=== PATIENT | male | born 1970 | race Caucasian/White ===

== ENCOUNTER 2020-09-24 13:55 | Emergency (ER) | payer BC, SELFPAY ==
[2020-09-24] VITALS (11 sets, daily range): BP systolic 135–176; BP diastolic 92–157; PULSE 86–114; RESP 14–22; TEMP 36.4; O2SAT 92–99
--- NOTE | ~2020-09-24 | XR_ITS ---
EXAMINATION: XR chest 1V portable EXAM DATE: 09/24/2020 14:49 INDICATION: Seizure activity today. TECHNIQUE: Portable AP frontal chest x-ray was obtained. There is no prior study for comparison. FINDINGS: The lungs are clear. There are no pleural effusions. The cardiomediastinal silhouette is within normal limits. There is no pneumothorax suspected. Advanced left glenohumeral joint osteoart hritis. IMPRESSION: No acute cardiopulmonary findings. Reviewed, dictated and finalized at location A. 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
--- NOTE | ~2020-09-24 | CT_ITS ---
EXAMINATION: CT brain wo con EXAM DATE: 09/24/2020 15:04 INDICATION: Seizure, headache, new onset. TECHNIQUE: Spiral CT of the head was performed without contrast. Axial, coronal and sagittal images were reviewed. The dose-length product (DLP) for this examination was 681.00 mGy-cm. The exposure w as tailored according to patient size, and iterative reconstruction (ASIR) was used as additional dos e reduction technique. There is no prior study for comparison. FINDINGS: There is no acute intraparenchymal hemorrhage. No evidence of intraparenchymal brain mass lesion. No evidence of acute infarction. Please note that initial head CT has limited sensitivity f or small or acute infarctions. There is mild prominence of the sulci and ventricles related to cerebr al atrophy. There is intracranial carotid arteriosclerosis. There are no extra-axial collections. There is no mass effect or midline shift. The orbits are unremarkable. There may be small amount o f soft tissue swelling of the vertex. The visualized sinuses and mastoid air cells are well aerated. IMPRESSION: 1. No acute intracranial findings. 2. Possible small amount of posterior vertex scalp swelling. Reviewed, dictated and finalized at location A. NEL TURNER
--- NOTE | 2020-09-24 14:08 | ECG_ITS ---
Measurements Intervals Reva Rate: 89 P: 12 PA: 131 QRS: -28 QRSD: 105 T: 11 QT: 368 QTc: 449 Interpretive Statements SINUS RHYTHM DELAYED PRECORDIAL R/S TRANSITION BORDERLINE T WAVE ABNORMALITY- INF/HIGH LAT LEADS BASELINE ARTIFACT- I, III, AVR, AVL, AVF, V1 BORDERLINE ECG Electronically Signed On 09-24-2020 15:35:16 PEWTER FABRICATOR by Domo Valenzuela D.O.
[2020-09-24] MEDS: SODIUM CHLORIDE 0.9% IV 1,000 ML 999 ML IV CONT (14:24)
[2020-09-24 14:51] LABS: Basophils Percent Auto 0.3 % (0.2-1.2); Eosinophils Percent Auto 0.2 % (0-4.4); Hematocrit 47.7 % (42.0-52.0); Hemoglobin 16.3 g/dL (14.0-18.0); Immature Granulocyte Absolute 0.05 K/mm3 (0.00-0.031); Immature Granulocyte Percent A 0.5 % (0-0.5); Lymphocytes Absolute Auto 1.04 K/mm3 (0.9-3.2); Lymphocytes Percent Auto 9.4 % (18.3-44.2); Mean Corpuscular HGB Conc 34.2 g/dl (32-36); Mean Corpuscular Hemoglobin 30.1 pg (26-34); Mean Corpuscular Volume 88.2 fl (80-100); Mean Platelet Volume 9.9 fl (7.4-10.4); Monocytes Absolute Auto 0.6 K/mm3 (0.1-0.6); Monocytes Percent Auto 5.3 % (2.6-8.5); Neutrophils Absolute Auto 9.3 K/mm3 (1.3-6.7); Neutrophils Percent Auto 84.3 % (45.5-73.1); Platelet Count Result 210 k/mm3 (150-375); Red Blood Count 5.41 M/mm3 (4.6-6.20); Red Cell Distribution Width 12.5 % (11.5-14.5)
[2020-09-24 14:57] LABS: Alveolar/Arterial O2 Gradient 38.5 mmHg; Base Excess ABG -3.7 mEq/l (+/-2.0); Carboxyhemoglobin 0.8 % THb (0-2.0); Fractional Inspired Oxygen 21 %; Methemoglobin ABG 0.4 %THb (0-1.5); Oxygen Content ABG 20.8 %vol (16.0-22.0); Oxygen Saturation ABG 94.6 % (95.0-100.0); Oxyhemoglobin 92.5 % THb (90.0-100.0); PO2 ABG 71.7 mmHg (80.0-100.0); PO2 FiO2 Ratio Arterial Blood 3.41 %; Reduced Hemoglobin 6.3 %THb (0-5.0); pH ABG 7.401 (7.350-7.450)
[2020-09-24 14:58] LABS: Device ROOM AIR; Site Drawn RIGHT BRACHIAL
[2020-09-24 14:59] LABS: Add Urine Microscopic? YES; Appearance Urine Clear (Clear); Bilirubin Urine Negative (Negative); Blood Urine Negative (Negative); Color Urine Yellow (Yellow); Glucose Urine UA Negative (Negative); Ketones Urine Trace mg/dL (Negative); Leukocyte Esterase Ur Negative LEU/UL (Negative); Nitrate Urine Negative (Negative); Protein Urine 2+ mg/dL (Negative); RBC Urine 0-2 /hpf (0-2); Specific Grav Ur 1.013 (1.001-1.035); Squamous Epithelial Cell Urine Rare /hpf (Few); Urobilinogen Urine Negative mg/dL (<2.0); WBC Urine 0-3 /hpf
[2020-09-24 15:02] LABS: Lactic Acid Reflex 2.8 mmol/L (0.7-2.1); Prothrombin Time 13.3 Seconds (11.1-14.7)
[2020-09-24 15:03] LABS: Ethanol < 10 mg/dL (<10); Partial Thromboplastin Time 24.9 SECONDS (22.3-36.8)
[2020-09-24 15:06] LABS: Alanine Aminotransferase 20 U/L (4-50); Albumin Level 4.6 g/dL (3.5-5.1); Alkaline Phosphatase 61 U/L (38-126); Anion Gap 9 mmol/L (8-16); Aspartate Amino Transferase 24 U/L (17-59); Bilirubin,Total 0.7 mg/dL (0.2-1.3); Blood Urea Nitrogen 13 mg/dL (9-20); CRP < 0.5 mg/dL (<1.0); Calcium 9.2 mg/dL (8.4-10.2); Carbon Dioxide 25 mmol/L (22-30); Chloride 103 mmol/L (98-107); Estimated CRCL calculation 93 ml/min; Estimated Glomerular Filt Rate > 60; Glucose 124 mg/dL (75-110); Lipase 61 U/L (23-300); Potassium 4.1 mmol/L (3.4-5.0); Sodium 137 mmol/L (137-145)
--- NOTE | 2020-09-24 15:14 | ED.GENADULT ---
HPI - General Adult General Chief complaint: Seizure Stated complaint: seizure Time Seen by Provider: 09/24/20 14:07 Source: patient Mode of arrival: ambulatory Limitations: no limitations History of Present Illness HPI narrative: Patient is a 50-year-old male who presents to emergency department for evaluation of seizure activity at work today was witnessed to have tonic-clonic seizure-like activity was confused after which for short period of time and on arrival to emergency department is having returned to normal mentation patient denies any recent illness or other complaints does not remember the seizure activity patient did bite his tongue. Patient denies any history of seizures. Patient notes the only recent changes he has had his a fasting diet that he has been doing for the last 2 weeks. Patient on arrival in the room in no distress only notes mild pain to the tongue where he has bitten himself as well as mild posterior headache where he has a small hematoma Related Data Allergies Allergy/AdvReac Type Severity Reaction Status Date / Time No Known Allergies Allergy Verified 09/24/20 14:06 Review of Systems Review of Systems: All systems reviewed & are unremarkable except as noted in HPI and below PMFSH Social History Social History (Updated 09/24/20 @ 15:15 by Tavo Gonzalez PA-C) Smoking status: Never smoker Exam Narrative: Exam Narrative: GENERAL: Well-appearing, well-nourished, and in no acute distress. HEAD: Normocephalic, small posterior scalp hematoma EYES: PERRLA and EOMI. ENT: Nares clear, no rhinorrhea or epistaxis. Mucous membranes moist. CHEST: Clear to auscultation. No respiratory distress. No wheezes rales or rhonchi HEART: Regular rate and rhythm. No murmur heard. Normal peripheral pulses. ABDOMEN: Soft, nontender, nondistended EXTREMITIES: Normal range of motion. No edema. SKIN: Warm, dry, no rash. NEURO: No focal deficits. Alert and oriented x3. Cranial nerves II through XII grossly intact. Normal speech PSYCH: Normal mood and affect. Course Course Emergency Course: Patient in the room at this time aware of case findings treatment plan diagnosis hemodynamically stable ABCs and vital signs intact and stable patient without high risk changes in his evaluation will follow with neurology is aware of recommendations will be started on Keppra loaded with Keppra in the emergency department. Patient also given driving restrictions. Consultations Consultation #1: Discussed case with neurologist Dr. Corrigan who would like the patient to be loaded with Keppra and started on Keppra 500 mg twice daily until he is seen in the clinic for outpatient follow-up also to be provided with driving restrictions Date: 09/24/20 Time: 16:11 Vital Signs Vital signs: Vital Signs Pulse Rate 100 09/24/20 13:58 Respiratory Rate 18 09/24/20 13:58 Pulse Oximetry 97 09/24/20 13:58 Temperature 97.5 F L 09/24/20 14:02 Pulse Rate 95 09/24/20 16:01 Respiratory Rate 20 09/24/20 16:01 Blood Pressure 160/115 H 09/24/20 16:00 Pulse Oximetry 99 09/24/20 15:46 Medical Decision Making [facility] Narrative Medical decision making narrative: Patient in the room no distress aware of case findings treatment plan and diagnosis felt appropriate for outpatient reevaluation Vital Signs Vital Signs: Vital Signs Pulse Rate 100 09/24/20 13:58 Respiratory Rate 18 09/24/20 13:58 Pulse Oximetry 97 09/24/20 13:58 Temperature 97.5 F L 09/24/20 14:02 Pulse Rate 95 09/24/20 16:01 Respiratory Rate 20 09/24/20 16:01 Blood Pressure 160/115 H 09/24/20 16:00 Pulse Oximetry 99 09/24/20 15:46 Lab Data Result diagrams: 09/24/20 14:38 09/24/20 14:38 Labs: Lab Results 09/24/20 09/24/20 09/24/20 Range/Units 14:37 14:37 14:38 WBC 11.0 H (4.5-10.0) K/mm3 RBC 5.41 (4.6-6.20) M/mm3 Hgb 16.3 (14.0-18.0) g/dL Hct 47.7 (42.0-52.0) % MCV 8
[2020-09-24 15:19] LABS: Benzodiazepines Screen Urine Negative (Negative)
[2020-09-24 15:27] LABS: Amphetamine Screen Urine Negative (Negative); Cannabinoid Screen Urine Negative (Negative); Cocaine Screen Urine Negative (Negative); Methadone Screen Urine Negative (Negative); Opiate Screen Urine Negative (Negative); Phencyclidine Screen Urine Negative (Negative)
[2020-09-24 15:32] LABS: Barbiturate Screen Urine Negative (Negative)
[2020-09-24] MEDS: levETIRAcetam 1000MG/NACL100ML 1,000 MG/100 ML BAG 400 MG IVPB (15:43)
[2020-09-24 17:47] LABS: Reflex Lactic Acid Yes or No Add Lactic
== END 2020-09-24 16:38 | disposition home or self-care (01) ==
PROVIDERS: Emergency Medicine Emergency Medical Services; Emergency Provider Emergency Medicine
DX: R56.9 Unspecified convulsions (principal); R94.31 Abnormal electrocardiogram [ECG] [EKG]
CPT/HCPCS: 36415; 36600; 70450; 71045; 80053; 80307; 81001; 82375; 82805; 83050; 83605; 83690; 85025; 85610; 85730; 86140; 87040; 93005; 96361; 96365; 99284; J1953; J7030

== ENCOUNTER 2020-10-07 12:35 | Outpatient (CLI) | payer BC, SELFPAY ==
--- NOTE | 2020-10-08 09:10 | NEURO_ITS ---
This report was moved to the correct visit, [id number] on 10/24/20. Original report was signed by Volodymyr Corrigan MD on 10/08/20 [id number]. Neurology EEG Report EEG DESCRIPTION Basic resting occipital frequency consists of large amount of fairly well- organized low voltage 8 to 10 hertz per second alpha admixed with low-voltage 15 to 18 hertz per second beta .During drowsiness low-voltage beta activity seen diffusely admixed with waxing and waning posterior alpha rhythm .Intermittent low to medium voltage 5 to 7 hertz per second theta activity seen anteriorly. Bilateral symmetrical sleep activity seen during sleep. Regular EKG artifact is also noted throughout the tracing.Hyperventilation not done. Photic stimulation produced normal drive. non paroxysmal. nonfocal .nonlateralizing. IMPRESSION abnormal record due to the presence of bihemispheric intermittent theta and delta activity ,clinical correlation recommended, abnormalities could be suggestive of underlying organic or metabolic encephalopathy or post ictal slowing. This dictation may have been done utilizing a voice recognition system. Attempts have been made to correct errors. However, there may be uncorrected grammatical, spelling, and recognition errors present. Report Initialized date/time: Volodymyr Corrigan MD 10/08/2010 Electronically signed by: Volodymyr Corrigan MD 10/08/20 [id number] [facility]
--- NOTE | 2020-10-08 10:53 | NEURO_ITS ---
This report was moved to the correct visit, [id number] on 10/24/20. Original report was signed by Volodymyr Corrigan MD on 10/08/201052. Neurology EEG Report General Information Date of Study: 10/07/20 TEST eeg DIAGNOSIS Seizures CONDITION OF RECORDING awake ,drowsy and sleep EEG NUMBER [id number] CLINICAL HISTORY patient reported he was at work in a meeting when he lost consciousness and bit his tongue. Witnesses say he was shaking while unconscious. No previous history or family history of seizures. EEG DESCRIPTION basic resting occipital frequency consists of large amount of fairly well- organized low voltage 9 to 11 hertz per second alpha admixed with low-voltage 15 to 18 hertz per second beta. . During drowsiness low-voltage beta activity seen diffusely admixed with waxing and waning alpha rhythm posteriorly. Intermittent regular EKG artifact is seen throughout most of the tracing.. Intermittent 2 to 3 hertz per second delta activity seen anteriorly Nonfocal. Nonlateralizing. IMPRESSION Abnormal record due to the intermittent theta and delta activity more so anteriorly clinical correlation recommended these abnormalities could be suggestive of underlying organic a metabolic encephalopathy or seizure focus This dictation may have been done utilizing a voice recognition system. Attempts have been made to correct errors. However, there may be uncorrected grammatical, spelling, and recognition errors present. Report Initialized date/time: Volodymyr Corrigan MD 10/08/201052 Electronically signed by: Volodymyr Corrigan MD 10/08/201052 [facility]
== END 2020-10-07 12:36 | disposition home or self-care (01) ==
PROVIDERS: Visit Provider Psychiatry & Neurology Neurology
DX: R56.9 Unspecified convulsions (principal)
CPT/HCPCS: 95816

== ENCOUNTER 2020-10-08 12:38 | Outpatient (CLI) | payer BC, SELFPAY ==
--- NOTE | ~2020-10-08 | CT_ITS ---
EXAMINATION: CTA brain carotid DATE: 10/08/2020 13:19 INDICATION: Cerebral aneurysm. TECHNIQUE: Computed tomographic angiography (CTA) of the head was performed with 100 mL Omnipaque-350 intravenous contrast. CTA of the neck was performed with intravenous contrast. Automated exposure co ntrol and iterative reconstruction technique were employed. The dose-length product was 1260.26 mGy-c m. Maximum intensity projection and volume rendered 3D-reconstructions were created by the [employer] on a separate workstation. COMPARISON: Head CT 09/24/2020 FINDINGS: HEAD CTA: There is no intracranial hemorrhage, acute infarction, or abnormal intracranial mass lesion . The ventricles are normal in size. There is a mucous retention cyst in the frontal sinus. The masto id air cells are normal. The orbits are normal. The vertebral arteries are codominant. There is no si gnificant stenosis of basilar artery or the posterior cerebral arteries. There is no significant sten osis of the intracranial internal carotid arteries or anterior or middle cerebral arteries. Anterior communicating artery is normal. The posterior communicating arteries are normal. NECK CTA: There are no pathologically enlarged lymph nodes. There is no significant stenosis of the v ertebral arteries. There is plaque in the proximal internal carotid arteries. There is 0% stenosis of the proximal right internal carotid artery relative to normal distal artery lumen diameter (NASCET c riteria). There is 0% stenosis of the proximal left internal carotid artery relative to normal distal artery lumen diameter. There is moderate cervical spondylosis. IMPRESSION: 1. No aneurysm. 2. 0% stenosis of the proximal internal carotid arteries relative to normal distal artery lumen diame ters (NASCET criteria). Reviewed, dictated and finalized at location A. IMPRESSION: 1. No aneurysm. 2. 0% stenosis of the proximal internal carotid arteries relative to normal dis mindy artery lumen diameters (NASCET criteria).
--- NOTE | 2020-10-08 09:08 | P.NEURO_ITS ---
Neurology EEG Report EEG DESCRIPTION Basic resting occipital frequency consists of large amount of fairly well- organized low voltage 8 to 10 hertz per second alpha admixed with low-voltage 15 to 18 hertz per second beta .During drowsiness low-voltage beta activity seen diffusely admixed with waxing and waning posterior alpha rhythm .Intermittent low to medium voltage 5 to 7 hertz per second theta activity seen anteriorly. Bilateral symmetrical sleep activity seen during sleep. Regular EKG artifact is also noted throughout the tracing.Hyperventilation not done. Photic stimulation produced normal drive. non paroxysmal. nonfocal .nonlateralizing. IMPRESSION abnormal record due to the presence of bihemispheric intermittent theta and delta activity ,clinical correlation recommended, abnormalities could be suggestive of underlying organic or metabolic encephalopathy or post ictal slowing.
--- NOTE | 2020-10-08 10:46 | P.NEURO_ITS ---
Neurology EEG Report General Information Date of Study: 10/07/20 TEST eeg DIAGNOSIS Seizures CONDITION OF RECORDING awake ,drowsy and sleep EEG NUMBER [id number] CLINICAL HISTORY patient reported he was at work in a meeting when he lost consciousness and bit his tongue. Witnesses say he was shaking while unconscious. No previous history or family history of seizures. EEG DESCRIPTION basic resting occipital frequency consists of large amount of fairly well- organized low voltage 9 to 11 hertz per second alpha admixed with low-voltage 15 to 18 hertz per second beta. . During drowsiness low-voltage beta activity seen diffusely admixed with waxing and waning alpha rhythm posteriorly. Intermittent regular EKG artifact is seen throughout most of the tracing.. Intermittent 2 to 3 hertz per second delta activity seen anteriorly Nonfocal. Nonlateralizing. IMPRESSION Abnormal record due to the intermittent theta and delta activity more so anteriorly clinical correlation recommended these abnormalities could be suggestive of underlying organic a metabolic encephalopathy or seizure focus
--- NOTE | 2020-10-08 13:01 | WPDNEUROLOGY ---
Neurology EEG Report General Information Date of Study: 10/07/20 TEST eeg DIAGNOSIS sizures CONDITION OF RECORDING awake drowsy and sleep EEG NUMBER [id number] CLINICAL HISTORY Patient reported that he was at work in a meeting when he lost consciousness and bit his tongue. Witness reported he was shaking while unconscious. No previous history or family history of seizure was available patient was in our 44 of a 48 hours cleans EEG DESCRIPTION basic resting occipital frequency consists of large amount of well-organized low voltage 8 to 10 hertz per 2nd alpha admixed with low-voltage 15 to 18 hertz per 2nd beta activity. During drowsiness low-voltage beta activity seen diffusely admixed with waxing and waning posterior alpha rhythm. Intermittent EKG artifact is noted throughout the tracing. bihemispheric spike and slow wave dysrhythmic activity seen lasting anywhere from 3 to 5 minutes with temporal dominance. these abnormalities are suggestive of underlying seizure disorder with temporal focus . IMPRESSION abnormal record due to the presence of bihemispheric theta and delta activity with the possibility of the sharp activity origin 18 from the left temporal focal further evaluation is recommended
== END 2020-10-08 12:39 | disposition home or self-care (01) ==
PROVIDERS: PCP Physician Assistant; Visit Provider Psychiatry & Neurology Neurology
DX: I72.9 Aneurysm of unspecified site (principal); R94.01 Abnormal electroencephalogram [EEG]
CPT/HCPCS: 70496; 70498; Q9967

== ENCOUNTER 2021-12-06 07:44 | Outpatient (CLI) | payer BC, SELFPAY ==
--- NOTE | ~2021-12-06 | MR_ITS ---
EXAMINATION: MR knee LT wo con DATE: 12/06/2021 08:42 INDICATION: Chronic knee pain. TECHNIQUE: Magnetic resonance imaging (MRI) of the knee was performed without intravenous contrast. S equences included axial PD-weighted FS FSE, coronal PD-weighted FSE and PD-weighted FS FSE, sagittal PD-weighted FSE, and sagittal T2-weighted FS FSE. COMPARISON: None. FINDINGS: Medial compartment: Intact meniscus. Mild diffuse cartilage thinning. Mild osteophytosis. Lateral compartment: Intact meniscus. Mild diffuse cartilage thinning and osteophytosis. Patellofemoral compartment: Full-thickness cartilage loss along the median ridge with several cartilaginous fissures in the later al facet and subchondral marrow edema and cysts. Extensor mechanism and retinacula are intact. Ligaments and tendons: ACL, PCL, MCL and LCL are intact. Medial and lateral tendons are intact. Fluid: Large volume joint fluid. Osseous/other: Benign and homogenous marrow except as noted above. IMPRESSION: 1. Severe chondromalacia patellae. 2. Large volume joint effusion. 3. Tricompartmental osteoarthritic change. Reviewed, dictated and finalized at location K.
== END 2021-12-06 07:45 | disposition home or self-care (01) ==
PROVIDERS: PCP Physician Assistant; Visit Provider Orthopaedic Surgery
DX: M17.12 Unilateral primary osteoarthritis, left knee (principal); M22.42 Chondromalacia patellae, left knee; M25.462 Effusion, left knee
CPT/HCPCS: 73721